=== PATIENT | male | born 1985 | race Native Hawaiian/Other Pacific Islander ===

== ENCOUNTER 2018-11-20 00:50 | Emergency (ER) | payer OTHER ==
[~2018-11-20] VITALS: Ht 175.3 cm; Wt 61.7 kg
[2018-11-20 02:47] VITALS: BP 136/91; TEMP 98.2
== END 2018-11-20 02:48 | disposition home or self-care (01) ==
LOC: ED 00:50
DX: T81.41XA Infection following a procedure, superficial incisional surgical site, initial encounter (principal); L08.9 Local infection of the skin and subcutaneous tissue, unspecified
CPT/HCPCS: 99283